=== PATIENT | male | born 1965 | race Caucasian/White ===

== ENCOUNTER 2020-11-27 18:28 | Outpatient (REF) | payer MEDICAID, SELFPAY ==
[2020-11-27 19:27] LABS: ALT 44 U/L (16-63); AST 22 U/L (15-37); Albumin 3.7 g/dL (3.4-5.0); Alkaline Phosphatase 90 U/L (46-116); Anion Gap 9.4 mmol/L (3-11); BUN 11 mg/dL (7-18); Bilirubin, Total 0.5 mg/dL (0.2-1.0); CO2 26.6 mmol/L (21.0-32.0); CREATININE 0.9 mg/dL (0.70-1.30); Calcium 8.7 mg/dL (8.5-10.1); Calculated LDL 192 mg/dL (<100); Chloride 101 mmol/L (98-107); Cholesterol 286 mg/dL (<200); Glucose 275 mg/dL (74-106); HDL Cholesterol 28 mg/dL (40-60); Potassium 3.8 mmol/L (3.5-5.1); Sodium 137 mmol/L (136-145); TSH 1.53 uIU/mL (0.36-3.74); Total Protein 7.2 g/dL (6.4-8.2); Triglyceride 333 mg/dL (<150)
== END 2020-11-27 18:48 ==
LOC: NCHCN 18:28
PROVIDERS: PCP Physician Assistant; Visit Provider Internal Medicine
DX: E11.9 Type 2 diabetes mellitus without complications (principal); I10 Essential (primary) hypertension; E78.2 Mixed hyperlipidemia; F41.8 Other specified anxiety disorders
CPT/HCPCS: 80053; 80061; 84443

== ENCOUNTER 2021-11-15 00:05 | Outpatient (CLI) | payer MEDICAID, SELFPAY ==
--- NOTE | 2021-11-15 09:15 | DI.NM_ITS ---
APPROVED REPORT Exam: Pharmacologic paired w/ low level exercise Patient Location: Out-Patient Room/Bed: Stress Nurse: Renetta Mccormick RN Ordering Provider:KATELYN CHAVIRA MD Contact Number: [phone] BMI: 34.00 Baseline Rhythm: Sinus Rhythm, LBBB Indications: LEFT BUNDLE BRANCH BLOCK Medical History Medical History: Syncope, HTN, DM, Tobacco use, CAD, COPD, NSVT, mild cardiomyopathy Cardiac Medications: Amlodipine, ASA, Atorvastatin, Humulin insulin, Jardiance, Metformin, Metoprolol succinate, Pioglitazone, ProAir inhaler Allergies: No known drug allergies Cardiac Risk Factors: HTN, CVD, COPD, Obesity, Smoking (current) Previous Cardiac Procedures: Pacemaker (2018) Pretest Chest Pain Characteristics: No chest pain Exercise History: Sedentary Physical Disabilities: None Lung Sounds: Clear to auscultation Heart Sounds: Regular Stress Test Details Test: Pharmacologic stress was paired with low level exercise. Reason for pharmacologic stress test: arthritis. Nuclear Acquisition: Rest Tc-99m/Stress Tc-99m 1 day Rest Isotope: Tc-99m Sestamibi. Dose: 11.8 Date: 11/15/2021 Injection Time: 0945 Stress Isotope: Tc-99m Sestamibi. Dose: 37.5 Date: 11/15/2021 Injection Time: 1102 HR Resting HR Supine: 78 bpm Max Heart Rate (APMHR): 164.291683 bpm Resting HR Standin bpm Target HR (85% APMHR): 139.558681 bpm Max HR Achieved: 146 bpm % of APMHR: 89.02 Recovery HR: 94 bpm BP Resting BP Supine: 134/92 mmHg Resting BP Standin/88 mmHg Max BP: 152/90 mmHg Recovery BP: 144/96 mmHg ECG Resting ECG: Sinus Rhythm, LBBB Ectopy: None Comment: inverted T waves noted in leads I, II, III, aVF, V5, and V6 noted in supine position. Stress ECG: Sinus Tachycardia, Sinus Rhythm, LBBB ST Change: No significant ST segment changes noted Arrhythmia: None Recovery ECG: Sinus Rhythm, LBBB Recovery ST Change: No significant ST segment changes noted Recovery Arrhythmia: None Clinical Stress Symptoms: Dyspnea Rate Pressure Product: [id number] Stress ECG Conclusion 1. Resting electrocardiogram showed left ventricular hypertrophy with diffuse repolarization abnormal ities 2. Patient underwent pharmacologic stress coupled with low-level exercise 3. Peak heart rate achieved was 89% of predicted 4. The patient developed a left bundle branch block during the procedure 5. Electrocardiographically the test was nondiagnostic due to resting electrocardiographic abnormalit ies Stress Test Summary STAGE HR BP Symptoms NOTES Supine 78 134/92 1 min post Lexiscan injection 135 148/82 mild SOB 3 min post Lexiscan injection 124 152/90 symptoms resolved 6 min post Lexiscan injection 94 144/96 Standing 108 130/88 Lexiscan injection given while patient walking at 1.0mph and 0% grade. MPI Conclusion There is a small area of apical thinning or infarction. There is no additional myocardial ischemia EF is 23%. LV is dilated and hypocontractile Radiologist Interpretation Radiologist agrees with Manager Coding's Interpretation. Radiologist Interpretation by: Luz Elena Ha MD Interpretation Date/Time: 11/15/2021 16:44:05
[2021-11-15] MEDS: Regadenoson 0.4 MG/5 ML SYR IVP (10:57)
== END 2021-11-15 00:25 ==
PROVIDERS: PCP Physician Assistant; Visit Provider Internal Medicine Interventional Cardiology
DX: I44.7 Left bundle-branch block, unspecified (principal); I51.7 Cardiomegaly; R94.39 Abnormal result of other cardiovascular function study; I10 Essential (primary) hypertension; I25.10 Atherosclerotic heart disease of native coronary artery without angina pectoris; J44.9 Chronic obstructive pulmonary disease, unspecified; E66.9 Obesity, unspecified; Z87.891 Personal history of nicotine dependence
CPT/HCPCS: 78452; 93017; J2785